=== PATIENT | male | born 1970 | race Caucasian/White ===

== ENCOUNTER 2023-06-14 20:38 | Emergency (ER) | payer MEDICARE, OTHER, MEDICAID ==
[~2023-06-14] VITALS: Ht 170.1 cm; Wt 63.0 kg
[~2023-06-14 20:38] MED LIST: CYCLOBENZAPRINE10 MG PO; ETODOLAC400 M2 PO; KEFLEX500 MG PO; Motrin,Rufen800 MG PO; PERCOCET 325 MG1 TA2 PO; PERCOCET 325 MG1 TA5 PO; VICODIN 5-3001 EACH PO
[2023-06-14 21:22] LABS: BASO # 0.1 10*3/uL (0.0-0.1); BASO % 0.9 % (0.0-1.0); EOS # 0.2 10*3/uL (0.0-0.4); EOS % 1.2 % (1.0-4.0); HEMATOCRIT 50.4 % (42.0-52.0); LYMPH # 1.5 10*3/uL (1.3-4.4); LYMPH % 11.9 % (27.0-41.0); MEAN CELL VOLUME 96.6 fl (80.0-94.0); MEAN CORPUSCULAR HGB 30.5 pg (27.0-31.0); MEAN CORPUSCULAR HGB CONC 31.5 g/dl (33.0-37.0); MEAN PLATELET VOLUME 8.6 fl (9.6-12.3); MONO # 0.6 10*3/uL (0.1-1.0); MONO % 5.1 % (3.0-9.0); NEUT # 10.2 10*3/uL (2.3-7.9); NEUT % 80.6 % (47.0-73.0); PLATELET COUNT AUTOMATED 340 10*3/uL (130-400); RED BLOOD COUNT 5.22 10*6/uL (4.50-5.90); WHITE BLOOD COUNT 12.6 10*3/uL (4.8-10.8)
[2023-06-14 21:43] LABS: ALKALINE PHOSPHATASE 80 U/L (46-116); BUN 6 mg/dl (9-23); CHLORIDE 107 mmol/L (98-107); POTASSIUM 4.7 mmol/L (3.4-5.1); SGPT/ALT 11 U/L (5-49); TOTAL PROTEIN 7.7 gm/dL (6.0-8.0)
== END 2023-06-14 22:52 ==
LOC: ED 20:38
PROVIDERS: Nurse Practitioner
DX: E16.2 Hypoglycemia, unspecified (principal); R00.2 Palpitations

== ENCOUNTER 2023-07-24 14:23 | Emergency (ER) | payer MEDICARE, MEDICAID ==
[~2023-07-24] VITALS: Ht 170.1 cm; Wt 57.6 kg
== END 2023-07-24 15:00 ==
LOC: ED 14:23
DX: K46.9 Unspecified abdominal hernia without obstruction or gangrene (principal); R73.09 Other abnormal glucose